=== PATIENT | male | born 1960 | race Caucasian/White ===

== ENCOUNTER 2019-09-06 13:32 | Outpatient (CLI) | payer OTHER, SELFPAY ==
--- NOTE | ~2019-09-06 | CT_ITS ---
EXAMINATION: CTA brain DATE: 09/06/2019 14:32 INDICATION: Cerebral aneurysm. TECHNIQUE: Computed tomographic angiography (CTA) of the head was performed without and with 100 mL O mnipaque-350 intravenous contrast. Automated exposure control and iterative reconstruction technique were employed. The dose-length product was 1024.19 mGy-cm. Maximum intensity projection 3D reconstru ctions were created. Volume-rendered 3D reconstructions of the intracranial arteries were created by the technologist on a separate workstation. COMPARISON: None. FINDINGS: There is no intracranial hemorrhage, acute infarction, or abnormal intracranial mass lesion . The ventricles are normal in size. There is mild mucosal thickening in the paranasal sinuses. The o rbits are normal. The mastoid air cells are normal. The vertebral arteries are codominant. There is n o significant stenosis of basilar artery or the posterior cerebral arteries. The posterior communicat ing arteries are normal. There is no significant stenosis of the intracranial internal carotid arteri es or anterior or middle cerebral arteries. Anterior communicating artery is normal. There is no aneu rysm. IMPRESSION: 1. Normal brain. No aneurysm or significant intracranial arterial stenosis. Reviewed, dictated and finalized at location A.
[2019-09-06 14:22] LABS: Estimated Glomerular Filt Rate > 60
== END 2019-09-06 13:33 | disposition home or self-care (01) ==
PROVIDERS: PCP Internal Medicine; Visit Provider Psychiatry & Neurology Neurology
DX: I72.9 Aneurysm of unspecified site (principal)
CPT/HCPCS: 36415; 70496; Q9967

== ENCOUNTER 2022-06-19 00:47 | Day surgery (SDC) | payer OTHER, SELFPAY ==
[2022-06-04 11:49] VITALS: BMI 28.8
--- NOTE | 2022-06-18 21:37 | PM.HPGS ---
History of Present Illness History of Present Illness Consent: Risks, benefits, and alternatives have been discussed and questions answered. Patient agrees to proceed with procedure. Chief complaint: family hx colon ca, dyspepsia, dysphagia Narrative: Thompson Garland is a 62 year old male who has had dysphagia for several months. Also, due for colonoscopy. His last colonoscopy was five years ago and he had one polyp. Never has had an EGD. Family hx of colon cancer in his father diagnosed around 70s Review of Systems Review of Systems: All systems reviewed & are unremarkable except as noted in HPI and below PMFSH Past Medical History Medical History Colon cancer screening Diabetes type 2, controlled Dysphagia Family hx of colon cancer Indigestion Obesity Social History Social History Smoking status: Never smoker Alcohol intake: current Alcohol use details: 6 drinks monthly Substance use type: does not use Living arrangements: with family Spiritual care concerns: No Meds Home Medications and Allergies Home Medications Medication Instructions Recorded Confirmed Type omeprazole 40 mg capsule,delayed 40 mg PO DAILY #30 caps 04/07/22 06/19/22 Rx release mecobalamin (vitamin B12) 5,000 5,000 mcg PO DAILY 06/04/22 06/19/22 History mcg lozenge semaglutide 7 mg tablet (Rybelsus) 14 mg PO DAILY 06/04/22 06/19/22 History Allergies Allergy/AdvReac Type Severity Reaction Status Date / Time No Known Allergies Allergy Verified 06/19/22 07:15 Exam Const: General: alert Orientation/consciousness: patient oriented x3 Resp: Auscultation: clear to auscultation bilaterally Cardio: Rhythm: regular rhythm GI: GI Palp: Yes Soft to palpation and No Tenderness to palpation present (GI) Neuro: General: patient oriented x3 Assessment and Plan Assessment and plan (1) Dysphagia: Code(s): R13.10 - Dysphagia, unspecified Status: Acute Assessment and Plan: EGD with possible biopsy or dilatation or cautery. (2) Colon cancer screening: Code(s): Z12.11 - Encounter for screening for malignant neoplasm of colon Status: Acute Assessment and Plan: Colonoscopy with possible biopsy or polypectomy or cautery or injection of substances.
[2022-06-19 07:16] VITALS: BP 137/80; PULSE 86; RESP 18; TEMP 36.2; O2SAT 100; BMI 28.7
[2022-06-19] MEDS: LACTATED RINGERS 1,000 ML 150 ML IV CONT (07:19)
[2022-06-19 07:40] LABS: Glucose Point of Care 138 mg/dl (65-105)
--- NOTE | 2022-06-19 08:03 | P.PNAN_ITS ---
Anes - Initial Pre Proc Eval Procedure: Operation Date: 06/19/22 08:30 Proposed Procedures p Esophagogastroduodenoscopy & Colonoscopy - Kalen Garcia MD Date/Time: 06/19/22 08:03 Surgeon: Kalen Garcia MD Pre Op Diagnosis: family hx colon ca, dyspepsia, dysphagia Patient Data Age: 62 Gender: M Height: 1.78 m Weight: 90.7 kg Last Vital Signs Temp 97.1 F L 06/19/22 07:16 Pulse 86 06/19/22 07:16 Resp 18 06/19/22 07:16 BP 137/80 06/19/22 07:16 Pulse Ox 100 06/19/22 07:16 O2 Del Method Room Air 06/19/22 07:16 Allergies Allergy/AdvReac Type Severity Reaction Status Date / Time No Known Allergies Allergy Verified 06/19/22 07:15 Home Medications Medication Instructions Recorded Confirmed Type omeprazole 40 mg capsule,delayed 40 mg PO DAILY #30 caps 04/07/22 06/19/22 Rx release mecobalamin (vitamin B12) 5,000 5,000 mcg PO DAILY 06/04/22 06/19/22 History mcg lozenge semaglutide 7 mg tablet (Rybelsus) 14 mg PO DAILY 06/04/22 06/19/22 History Laboratory Tests 06/19/22 07:37 POC Capillary Glucose 138 H mg/dl (65-105) Patient hx anesthesia problems: none Family hx anesthesia problems: none Results Review: All pre-operative results and documents have been reviewed as part of the pre- operative evaluation. [facility] Past Medical History Medical History (Updated 04/07/22 @ 16:00 by Cathleen Calabrese APRN) Colon cancer screening Diabetes type 2, controlled Dysphagia Family hx of colon cancer Indigestion Obesity Social History Social History Smoking status: Never smoker Alcohol intake: current Alcohol use details: 6 drinks monthly Substance use type: does not use Living arrangements: with family Spiritual care concerns: No Anes - Eval Final PreProcedure Day of Procedure 06/19/22 08:03 Patient weight: normal Heart: regular rate and rhythm Lungs: clear to auscultation Airway: Mallampati scale class II Neurological: alert and oriented Last oral intake: >/= 8 hours ASA classification: II Emergent: no Anesthetic plan: proceed Anesthesia type and monitoring: general GIVS and standard monitoring Results Review: All pre-operative results and documents have been reviewed as part of the pre- operative evaluation. Informed Consent: The patient's anesthetic plan and its attendant risks and benefits were discussed with the patient/family/POA. Questions were solicited and answers provided to the satisfaction of the patient/family/POA.
--- NOTE | 2022-06-19 08:20 | SUR.OPER ---
EGD completed at 0812, Colonoscopy started at 0821
[2022-06-19 08:43] VITALS: BP 103/65; PULSE 82; RESP 22; O2SAT 96
[2022-06-19 08:53] VITALS: BP 104/66; PULSE 78; RESP 18; O2SAT 97
[2022-06-19 09:03] VITALS: BP 112/73; PULSE 77; RESP 18; O2SAT 98
== END 2022-06-19 09:15 | disposition home or self-care (01) ==
PROVIDERS: PCP Internal Medicine Endocrinology, Diabetes & Metabolism; Visit Provider Internal Medicine Gastroenterology
PROC: 0DJ08ZZ Inspection of Upper Intestinal Tract, Via Natural or Artificial Opening Endoscopic (ICD-10-PCS; CPT 43235; principal; 2022-06-19 08:30)
DX: Z12.11 Encounter for screening for malignant neoplasm of colon (principal); K57.30 Diverticulosis of large intestine without perforation or abscess without bleeding; D12.4 Benign neoplasm of descending colon; K22.2 Esophageal obstruction; K21.9 Gastro-esophageal reflux disease without esophagitis; Z80.0 Family history of malignant neoplasm of digestive organs; E11.9 Type 2 diabetes mellitus without complications
CPT/HCPCS: 45381; 45385; 43249; 82948; 88305; C1726; J2704; J7120

== ENCOUNTER 2023-12-04 11:55 | Emergency (ER) | payer BC, SELFPAY ==
--- NOTE | ~2023-12-04 | XR_ITS ---
EXAMINATION: XR chest 2V 12/04/2023 12:24 INDICATION: Cough for 2 weeks. Fever. Wheezing. PROCEDURE: 2 view chest COMPARISON: No prior studies for comparison. FINDINGS: The lungs are clear. The cardiomediastinal silhouette is within normal limits. There are no pleural effusions. There is no pneumothorax suspected. IMPRESSION: 1: NO ACUTE CARDIOPULMONARY DISEASE. Reviewed, dictated and finalized at location B.
[2023-12-04 12:10] VITALS: BP 145/95; PULSE 93; RESP 16; TEMP 37.7; O2SAT 96
[2023-12-04 12:12] VITALS: BP 145/95; PULSE 93; RESP 16; TEMP 37.7; O2SAT 96
--- NOTE | 2023-12-04 12:17 | ED.URI ---
HPI - URI/Sore Throat General Chief Complaint: Upper Respiratory Infection Stated Complaint: Cough,Fever Time Seen by Provider: 12/04/23 12:10 Source: patient and RN notes reviewed Mode of arrival: ambulatory Limitations: no limitations History of Present Illness HPI Narrative: Patient presents today complaining of a 2 week history of cough, congestion, fatigue, headache, weakness. Patient called his PCP and was started on azithromycin and Flonase nasal spray on 11/19/2023. Patient states that he developed palpitations when he started to use the Flonase so quickly discontinued it. States he felt better on the azithromycin for a few days before symptoms returned. Two days ago he called his insurance company and was texting with a doctor who called him in some [employer], which has been providing some relief of cough. Few days ago he developed a new fever up to 100.7. Denies shortness of breath, rhinorrhea, wheezing. He has also tried Mucinex, DayQuil, NyQuil. Denies history of asthma or COPD. He is a nonsmoker. Related Data Home Medications Medication Instructions Recorded Confirmed semaglutide 7 mg tablet (Rybelsus) 14 mg PO DAILY 06/04/22 12/04/23 atorvastatin 10 mg tablet 10 mg PO DAILY 12/04/23 12/04/23 Allergies Allergy/AdvReac Type Severity Reaction Status Date / Time fluticasone AdvReac Unknown Palpitation Uncoded 12/04/23 12:46 s Review of Systems Review of Systems: CONSTITUTIONAL: Denies body aches, chills, or sweats.+ fever, fatigue EYES: Denies visual changes, redness, or discharge. ENT: Denies rhinorrhea, sore throat, or otalgia.+ congestion CARDIOVASCULAR: Denies chest pain, palpitations, or edema. RESPIRATORY: Denies dyspnea.+ cough GASTROINTESTINAL: Denies abdominal pain, nausea, vomiting, or diarrhea. GENITOURINARY: Denies dysuria or hematuria. SKIN: Denies rash, itching, or wounds. MUSCULOSKELETAL: Denies back pain, joint pain, or myalgia. NEUROLOGIC: Denies numbness, tingling, or weakness.+ headache PSYCH: Denies depression or anxiety. [facility] Past Medical History Medical History Colon cancer screening Diabetes type 2, controlled Dysphagia Family hx of colon cancer Indigestion Obesity Social History Social History Smoking status: Never smoker Alcohol intake: current Alcohol use details: 6 drinks monthly Substance use type: does not use Living arrangements: with family Spiritual care concerns: No Comments Reviewed Exam Narrative: GENERAL: Mildly ill-appearing, well-nourished, and in no acute distress. HEAD: Normocephalic, atraumatic. EYES: EOMI. No redness or drainage. Conjunctivae normal. ENT: Mucous membranes pink and moist. Nares congested. No rhinorrhea. TMs normal bilaterally. Throat normal. Uvula midline. NECK: Normal AROM. Supple. No lymphadenopathy. CHEST: No respiratory distress. Expiratory wheezing throughout. Diminished in the bilateral bases. HEART: Regular rate and rhythm. No murmur appreciated. EXTREMITIES: Normal range of motion. No edema. SKIN: Warm, dry, no rash. Capillary refill normal. Normal skin turgor. NEURO: No focal deficits. Alert and oriented x3. Gait steady. PSYCH: Normal affect. No signs of depression or anxiety. Course Course Emergency Course: Chest x-ray obtained due to patient's lung sounds and development of recent new fever. Level of Care: Express Care Visit Vital Signs Vital signs: Vital Signs Temperature 100 F H 12/04/23 12:10 Pulse Rate 93 12/04/23 12:10 Respiratory Rate 16 12/04/23 12:10 Blood Pressure 145/95 H 12/04/23 12:10 Pulse Oximetry 96 12/04/23 12:10 Temperature 100 F H 12/04/23 12:12 Pulse Rate 93 12/04/23 12:12 Respiratory Rate 16 12/04/23 12:12 Blood Pressure 145/95 H 12/04/23 12:12 Pulse Oximetry 96 12/04/23 12:12 Reviewed
== END 2023-12-04 12:42 | disposition home or self-care (01) ==
PROVIDERS: Emergency Provider Nurse Practitioner; PCP Internal Medicine
DX: J40 Bronchitis, not specified as acute or chronic (principal); J01.90 Acute sinusitis, unspecified; E11.9 Type 2 diabetes mellitus without complications; E66.9 Obesity, unspecified; Z68.28 Body mass index [BMI] 28.0-28.9, adult
CPT/HCPCS: 71046; 99213; G0463